=== PATIENT | female | born 1945 | race African-American/Black ===

== ENCOUNTER 2018-08-03 11:00 | Emergency (ER) | payer OTHER, MEDICAID ==
[2018-08-03 11:27] LABS: ADD MAN DIFF? NO
[2018-08-03 11:30] LABS: BASOPHILS % 0.6 % (0.0-2.0); EOSINOPHILS % 1.2 % (0.0-7.0); HEMATOCRIT 37.3 % (37.0-47.0); HEMOGLOBIN 11.7 g/dl (12.0-16.0); LYMPHOCYTES % 28.5 % (15.0-51.0); MEAN CORPUSCULAR HEMOGLOBIN 29.3 pg (29.0-33.0); MEAN CORPUSCULAR HGB CONC 31.4 g/dl (32.0-37.0); MEAN CORPUSCULAR VOLUME 93.5 fl (82.0-101.0); MEAN PLATELET VOLUME 10.4 fl (7.4-10.4); MONOCYTE # 0.3 10^3/ul (0.3-0.9); MONOCYTES % 9.9 % (0.0-11.0); NEUTROPHIL # 2.1 10^3/ul (1.6-7.5); NEUTROPHILS % 59.5 % (39.0-77.0); PLATELET COUNT 228 10^3/UL (140-415); RED BLOOD COUNT 3.99 10^6/ul (4.20-5.40); RED CELL DISTRIBUTION WIDTH 13.4 % (11.5-14.5)
[2018-08-03 11:30] LABS: WHITE BLOOD COUNT 3.4 10^3/ul (4.8-10.8)
[2018-08-03 11:44] LABS: ANION GAP 10 (8-16); BLOOD UREA NITROGEN 19 mg/dl (7-20); CALCIUM 9.6 mg/dl (8.4-10.2); CARBON DIOXIDE 29 mmol/L (21-31); CHLORIDE 106 mmol/L (97-110); CREATININE 1.33 mg/dl (0.44-1.00); GLUCOSE 141 mg/dl (70-220); MAGNESIUM 1.4 mg/dl (1.7-2.5); POTASSIUM 4.6 mmol/L (3.5-5.1); SODIUM 140 mmol/L (135-144)
[2018-08-03 11:55] LABS: TROPONIN-I < 0.012 ng/ml (0.000-0.120)
[2018-08-03] MEDS: MAGNESIUM SULFATE 1 GM/D5W 100 ML IVPB (12:13)
== END 2018-08-03 14:25 | disposition home or self-care (01) ==
LOC: E/R 11:00
DX: R25.3 Fasciculation (principal); Q79.0 Congenital diaphragmatic hernia; E83.42 Hypomagnesemia; J44.9 Chronic obstructive pulmonary disease, unspecified; I10 Essential (primary) hypertension; E11.9 Type 2 diabetes mellitus without complications; I25.810 Atherosclerosis of coronary artery bypass graft(s) without angina pectoris; Z87.891 Personal history of nicotine dependence; Z95.0 Presence of cardiac pacemaker
CPT/HCPCS: 36415; 71045; 71250; 80048; 83735; 84484; 85025; 93005; 96374; 99285-25

== ENCOUNTER 2018-08-08 13:14 | Emergency (ER) | payer OTHER, MEDICAID | END 2018-08-08 16:25 | disposition home or self-care (01) | LOC: E/R 13:14 | DX: R25.3 Fasciculation (principal); J44.9 Chronic obstructive pulmonary disease, unspecified; E11.9 Type 2 diabetes mellitus without complications; I10 Essential (primary) hypertension; I25.10 Atherosclerotic heart disease of native coronary artery without angina pectoris; Z87.891 Personal history of nicotine dependence; Z95.0 Presence of cardiac pacemaker; Z95.1 Presence of aortocoronary bypass graft | CPT/HCPCS: 82962; 99282 ==

== ENCOUNTER 2018-08-13 16:29 | Emergency (ER) | payer SELFPAY, MEDICAID, OTHER | END 2018-08-13 20:50 | disposition left against medical advice (07) | LOC: E/R 16:29 | DX: Z53.21 Procedure and treatment not carried out due to patient leaving prior to being seen by health care provider (principal) ==

== ENCOUNTER 2018-08-15 12:08 | Inpatient (IN) | payer OTHER, MEDICAID ==
[2018-08-15 13:03] LABS: ADD MAN DIFF? NO
[2018-08-15 13:08] LABS: WHITE BLOOD COUNT 3.7 10^3/ul (4.8-10.8)
[2018-08-15 13:08] LABS: BASOPHILS % 0.5 % (0.0-2.0); EOSINOPHILS % 1.1 % (0.0-7.0); HEMATOCRIT 38.9 % (37.0-47.0); LYMPHOCYTES # 0.9 10^3/ul (0.8-2.9); LYMPHOCYTES % 23.7 % (15.0-51.0); MEAN CORPUSCULAR HEMOGLOBIN 29.1 pg (29.0-33.0); MEAN CORPUSCULAR HGB CONC 30.8 g/dl (32.0-37.0); MEAN CORPUSCULAR VOLUME 94.2 fl (82.0-101.0); MEAN PLATELET VOLUME 10.2 fl (7.4-10.4); MONOCYTE # 0.3 10^3/ul (0.3-0.9); MONOCYTES % 7.8 % (0.0-11.0); NEUTROPHIL # 2.5 10^3/ul (1.6-7.5); NEUTROPHILS % 66.6 % (39.0-77.0); PLATELET COUNT 204 10^3/UL (140-415); RED BLOOD COUNT 4.13 10^6/ul (4.20-5.40); RED CELL DISTRIBUTION WIDTH 13.2 % (11.5-14.5)
[2018-08-15 13:25] LABS: ANION GAP 11 (8-16); BLOOD UREA NITROGEN 22 mg/dl (7-20); CALCIUM 9.6 mg/dl (8.4-10.2); CARBON DIOXIDE 26 mmol/L (21-31); CHLORIDE 109 mmol/L (97-110); CREATININE 1.33 mg/dl (0.44-1.00); GLUCOSE 127 mg/dl (70-220); POTASSIUM 4.3 mmol/L (3.5-5.1); SODIUM 142 mmol/L (135-144)
[2018-08-15 13:27] LABS: INR 0.94; PROTIME 12.7 Sec (11.9-14.9)
[2018-08-15 13:37] LABS: B-TYPE NATRIURETIC PEPTIDE 3770 PG/ML (0-125); TROPONIN-I < 0.012 ng/ml (0.000-0.120)
[2018-08-15] MEDS ORDERED: ACETAMINOPHEN 325 MG TAB PO (14:30)
[2018-08-15] MEDS ORDERED: NITROGLYCERIN (SL) 0.4 MG TAB SL (15:00)
[2018-08-15] MEDS: FUROSEMIDE 40 MG INJ IV (15:01)
[2018-08-15] MEDS: NITROGLYCERIN 2% 1 GM OINT PKT TD (15:01)
[2018-08-15] MEDS ORDERED: NACL 0.9% 3 ML SYG IV (15:30)
[2018-08-15] MEDS: ALBUTEROL/IPRATROPIUM (NEB) 3 ML AMP HHN ×2 (15:30→20:42)
[2018-08-15] MEDS ORDERED: HYDROCODONE/APAP (5/325) TAB PO (15:30)
[2018-08-15] MEDS: FUROSEMIDE 20 MG INJ IV (17:59)
[2018-08-15] MEDS: ATORVASTATIN 80 MG TAB PO (20:44)
[2018-08-15] MEDS: NIFEdipine (XL) 60 MG TAB PO (20:44)
[2018-08-16] MEDS: hydrALAzine 20 MG INJ IV (00:01)
[2018-08-16] MEDS: ONDANSETRON 4 MG INJ IV (01:22)
[2018-08-16] MEDS: ALBUTEROL/IPRATROPIUM (NEB) 3 ML AMP HHN ×3 (01:39→13:35)
[2018-08-16] MEDS: FUROSEMIDE 20 MG INJ IV ×2 (05:42→18:24)
[2018-08-16 05:43] LABS: ADD MAN DIFF? NO
[2018-08-16 05:50] LABS: BASOPHILS % 0.2 % (0.0-2.0); EOSINOPHILS % 0.5 % (0.0-7.0); HEMATOCRIT 33.9 % (37.0-47.0); HEMOGLOBIN 10.8 g/dl (12.0-16.0); LYMPHOCYTES # 0.7 10^3/ul (0.8-2.9); MEAN CORPUSCULAR HEMOGLOBIN 29.5 pg (29.0-33.0); MEAN CORPUSCULAR HGB CONC 31.9 g/dl (32.0-37.0); MEAN CORPUSCULAR VOLUME 92.6 fl (82.0-101.0); MEAN PLATELET VOLUME 10.4 fl (7.4-10.4); MONOCYTE # 0.4 10^3/ul (0.3-0.9); NEUTROPHIL # 3.2 10^3/ul (1.6-7.5); NEUTROPHILS % 74.1 % (39.0-77.0); PLATELET COUNT 209 10^3/UL (140-415); RED BLOOD COUNT 3.66 10^6/ul (4.20-5.40); RED CELL DISTRIBUTION WIDTH 13.2 % (11.5-14.5)
[2018-08-16 05:50] LABS: WHITE BLOOD COUNT 4.4 10^3/ul (4.8-10.8)
[2018-08-16 05:57] LABS: HEMOGLOBIN A1C 6.8 % (0-5.9)
[2018-08-16 07:02] LABS: ALANINE AMINOTRANSFERASE 19 IU/L (13-69); ALBUMIN 3.2 g/dl (3.3-4.9); ALBUMIN/GLOBULIN RATIO 1.14; ALKALINE PHOSPHATASE 44 IU/L (42-121); ANION GAP 10 (8-16); ASPARTATE AMINO TRANSFERASE 24 IU/L (15-46); BILIRUBIN,INDIRECT 0.6 mg/dl (0-1.1); BILIRUBIN,TOTAL 0.6 mg/dl (0.2-1.3); BLOOD UREA NITROGEN 23 mg/dl (7-20); CALCIUM 9.3 mg/dl (8.4-10.2); CARBON DIOXIDE 28 mmol/L (21-31); CHLORIDE 108 mmol/L (97-110); CREATININE 1.29 mg/dl (0.44-1.00); GLUCOSE 143 mg/dl (70-220); POTASSIUM 3.7 mmol/L (3.5-5.1); SODIUM 142 mmol/L (135-144)
[2018-08-16] MEDS: CLOPIDOGREL 75 MG TAB PO (08:02)
[2018-08-16] MEDS: NIFEdipine (XL) 60 MG TAB PO (08:04)
[2018-08-16] MEDS: ENOXAPARIN 30 MG/0.3 ML SYG SC (08:09)
== END 2018-08-16 19:50 | disposition home or self-care (01) | DRG 93 ==
LOC: E/R 12:08 → 6WM 14:24
DX: R25.3 Fasciculation (principal); R06.02 Shortness of breath; I25.10 Atherosclerotic heart disease of native coronary artery without angina pectoris; E11.9 Type 2 diabetes mellitus without complications; J44.9 Chronic obstructive pulmonary disease, unspecified; E78.00 Pure hypercholesterolemia, unspecified; K44.9 Diaphragmatic hernia without obstruction or gangrene; I11.0 Hypertensive heart disease with heart failure; I50.9 Heart failure, unspecified; Z87.891 Personal history of nicotine dependence; Z95.1 Presence of aortocoronary bypass graft; Z79.84 Long term (current) use of oral hypoglycemic drugs; Z95.0 Presence of cardiac pacemaker; Z82.49 Family history of ischemic heart disease and other diseases of the circulatory system
CPT/HCPCS: 71045; 80048; 80053; 83036; 83880; 84484; 85025; 85610; 93005; 93306; 93971; 94640; 94664; 99285-25

== ENCOUNTER 2018-08-24 23:01 | Observation (INO) | payer OTHER, MEDICAID ==
[2018-08-25 00:45] LABS: ADD MAN DIFF? NO
[2018-08-25 00:50] LABS: BASOPHILS % 0.4 % (0.0-2.0); EOSINOPHILS % 0.8 % (0.0-7.0); HEMATOCRIT 42.8 % (37.0-47.0); HEMOGLOBIN 13.1 g/dl (12.0-16.0); LYMPHOCYTES # 1.2 10^3/ul (0.8-2.9); LYMPHOCYTES % 22.7 % (15.0-51.0); MEAN CORPUSCULAR HEMOGLOBIN 28.3 pg (29.0-33.0); MEAN CORPUSCULAR HGB CONC 30.6 g/dl (32.0-37.0); MEAN CORPUSCULAR VOLUME 92.4 fl (82.0-101.0); MEAN PLATELET VOLUME 9.5 fl (7.4-10.4); MONOCYTE # 0.3 10^3/ul (0.3-0.9); MONOCYTES % 6.1 % (0.0-11.0); NEUTROPHIL # 3.7 10^3/ul (1.6-7.5); NEUTROPHILS % 69.8 % (39.0-77.0); PLATELET COUNT 261 10^3/UL (140-415); RED BLOOD COUNT 4.63 10^6/ul (4.20-5.40)
[2018-08-25 00:50] LABS: WHITE BLOOD COUNT 5.2 10^3/ul (4.8-10.8)
[2018-08-25 01:11] LABS: CREATINE KINASE 51 IU/L (23-200)
[2018-08-25 01:21] LABS: CK INDEX 4.5; CK-MB 2.29 ng/ml (0.0-2.4); TROPONIN-I < 0.012 ng/ml (0.000-0.120)
[2018-08-25 01:50] LABS: ANION GAP 16 (8-16); BLOOD UREA NITROGEN 21 mg/dl (7-20); CALCIUM 10.4 mg/dl (8.4-10.2); CARBON DIOXIDE 24 mmol/L (21-31); CHLORIDE 107 mmol/L (97-110); CREATININE 1.19 mg/dl (0.44-1.00); GLUCOSE 120 mg/dl (70-220); POTASSIUM 3.7 mmol/L (3.5-5.1); SODIUM 143 mmol/L (135-144)
[2018-08-25 02:01] LABS: TROPONIN-I < 0.012 ng/ml (0.000-0.120)
[2018-08-25] MEDS: NITROGLYCERIN 2% 1 GM OINT PKT TD (03:15)
[2018-08-25] MEDS: ASPIRIN 81 MG TAB PO (03:15)
[2018-08-25] MEDS ORDERED: ACETAMINOPHEN 325 MG TAB PO (06:00)
[2018-08-25] MEDS ORDERED: ONDANSETRON 4 MG INJ IV (06:00)
[2018-08-25] MEDS ORDERED: NACL 0.9% 3 ML SYG IV (06:00)
[2018-08-25] MEDS ORDERED: NITROGLYCERIN (SL) 0.4 MG TAB SL (06:00)
[2018-08-25] MEDS ORDERED: ALBUTEROL/IPRATROPIUM (NEB) 3 ML AMP HHN (06:00)
[2018-08-25 07:30] LABS: CREATINE KINASE 40 IU/L (23-200)
[2018-08-25 07:33] LABS: CK INDEX 5.5; CK-MB 2.21 ng/ml (0.0-2.4); TROPONIN-I < 0.012 ng/ml (0.000-0.120)
[2018-08-25] MEDS: metFORMIN (XR) 500 MG TAB PO (08:30)
[2018-08-25] MEDS: NIFEdipine (XL) 60 MG TAB PO (08:30)
[2018-08-25] MEDS: CLOPIDOGREL 75 MG TAB PO (08:30)
[2018-08-25] MEDS ORDERED: NIFEdipine (XL) 60 MG TAB PO (09:00)
[2018-08-25] MEDS: METHYLPREDNISOLONE 125 MG INJ IV (11:55)
[2018-08-25] MEDS ORDERED: ATORVASTATIN 80 MG TAB PO (21:00)
== END 2018-08-25 18:20 | disposition home or self-care (01) ==
LOC: E/R 23:01 → 6WM 08-25 03:47
DX: R07.9 Chest pain, unspecified (principal); E11.9 Type 2 diabetes mellitus without complications; I25.10 Atherosclerotic heart disease of native coronary artery without angina pectoris; I11.0 Hypertensive heart disease with heart failure; I50.9 Heart failure, unspecified; Z95.0 Presence of cardiac pacemaker; Z95.1 Presence of aortocoronary bypass graft
CPT/HCPCS: 36415; 71045; 80048; 82550; 82553; 84484; 85025; 93005; 99217; 99285-25

== ENCOUNTER 2018-08-28 08:26 | Emergency (ER) | payer OTHER, MEDICAID ==
[2018-08-28 09:04] LABS: ADD MAN DIFF? NO
[2018-08-28 09:07] LABS: BASOPHILS % 0.5 % (0.0-2.0); EOSINOPHILS # 0.1 10^3/ul (0.0-0.5); EOSINOPHILS % 1.4 % (0.0-7.0); HEMATOCRIT 38.8 % (37.0-47.0); HEMOGLOBIN 12.4 g/dl (12.0-16.0); LYMPHOCYTES # 1.3 10^3/ul (0.8-2.9); LYMPHOCYTES % 22.3 % (15.0-51.0); MEAN CORPUSCULAR HEMOGLOBIN 28.9 pg (29.0-33.0); MEAN CORPUSCULAR VOLUME 90.4 fl (82.0-101.0); MEAN PLATELET VOLUME 9.6 fl (7.4-10.4); MONOCYTE # 0.4 10^3/ul (0.3-0.9); MONOCYTES % 6.2 % (0.0-11.0); NEUTROPHILS % 69.3 % (39.0-77.0); PLATELET COUNT 275 10^3/UL (140-415); RED BLOOD COUNT 4.29 10^6/ul (4.20-5.40); RED CELL DISTRIBUTION WIDTH 12.9 % (11.5-14.5)
[2018-08-28 09:07] LABS: WHITE BLOOD COUNT 5.8 10^3/ul (4.8-10.8)
[2018-08-28 09:42] LABS: ANION GAP 17 (8-16); BLOOD UREA NITROGEN 24 mg/dl (7-20); CALCIUM 9.8 mg/dl (8.4-10.2); CARBON DIOXIDE 21 mmol/L (21-31); CHLORIDE 109 mmol/L (97-110); CREATININE 1.29 mg/dl (0.44-1.00); GLUCOSE 116 mg/dl (70-220); POTASSIUM 3.5 mmol/L (3.5-5.1); SODIUM 143 mmol/L (135-144)
[2018-08-28 09:56] LABS: TROPONIN-I 0.021 ng/ml (0.000-0.120)
== END 2018-08-28 10:35 | disposition home or self-care (01) ==
LOC: E/R 08:26
DX: R00.2 Palpitations (principal); E11.9 Type 2 diabetes mellitus without complications; I25.10 Atherosclerotic heart disease of native coronary artery without angina pectoris; I11.0 Hypertensive heart disease with heart failure; I50.9 Heart failure, unspecified; Z79.01 Long term (current) use of anticoagulants; Z79.84 Long term (current) use of oral hypoglycemic drugs; Z95.0 Presence of cardiac pacemaker; Z95.1 Presence of aortocoronary bypass graft
CPT/HCPCS: 36415; 71045; 80048; 84484; 85025; 93005; 99285-25

== ENCOUNTER 2018-08-30 08:34 | Emergency (ER) | payer OTHER, MEDICAID ==
[2018-08-30 09:09] LABS: ADD MAN DIFF? NO
[2018-08-30 09:11] LABS: BASOPHILS % 0.4 % (0.0-2.0); EOSINOPHILS # 0.1 10^3/ul (0.0-0.5); EOSINOPHILS % 1.3 % (0.0-7.0); HEMATOCRIT 41.9 % (37.0-47.0); HEMOGLOBIN 13.3 g/dl (12.0-16.0); LYMPHOCYTES # 1.1 10^3/ul (0.8-2.9); LYMPHOCYTES % 15.8 % (15.0-51.0); MEAN CORPUSCULAR HEMOGLOBIN 28.9 pg (29.0-33.0); MEAN CORPUSCULAR HGB CONC 31.7 g/dl (32.0-37.0); MEAN CORPUSCULAR VOLUME 91.1 fl (82.0-101.0); MEAN PLATELET VOLUME 9.4 fl (7.4-10.4); MONOCYTE # 0.3 10^3/ul (0.3-0.9); MONOCYTES % 4.1 % (0.0-11.0); NEUTROPHIL # 5.3 10^3/ul (1.6-7.5); NEUTROPHILS % 78.1 % (39.0-77.0); PLATELET COUNT 279 10^3/UL (140-415); RED CELL DISTRIBUTION WIDTH 12.7 % (11.5-14.5)
[2018-08-30 09:11] LABS: WHITE BLOOD COUNT 6.8 10^3/ul (4.8-10.8)
[2018-08-30] MEDS: SOD CHLORIDE 0.9% 500 ML IV (09:11)
[2018-08-30] MEDS: LORAZEPAM 0.5 MG TAB PO (09:11)
[2018-08-30 09:41] LABS: ALANINE AMINOTRANSFERASE 12 IU/L (13-69); ALBUMIN 4.9 g/dl (3.3-4.9); ALBUMIN/GLOBULIN RATIO 1.22; ALKALINE PHOSPHATASE 78 IU/L (42-121); ANION GAP 16 (8-16); ASPARTATE AMINO TRANSFERASE 32 IU/L (15-46); BILIRUBIN,INDIRECT 0.6 mg/dl (0-1.1); BILIRUBIN,TOTAL 0.6 mg/dl (0.2-1.3); BLOOD UREA NITROGEN 18 mg/dl (7-20); CARBON DIOXIDE 22 mmol/L (21-31); CHLORIDE 108 mmol/L (97-110); CREATININE 1.15 mg/dl (0.44-1.00); GLUCOSE 159 mg/dl (70-220); LIPASE 234 U/L (23-300); POTASSIUM 3.2 mmol/L (3.5-5.1); SODIUM 143 mmol/L (135-144); TOTAL PROTEIN 8.9 g/dl (6.1-8.1)
[2018-08-30 09:53] LABS: TROPONIN-I 0.019 ng/ml (0.000-0.120)
[2018-08-30] MEDS: POTASSIUM CHLORIDE (SR) 20 MEQ TAB PO (10:59)
[2018-08-30 11:05] LABS: URINE PH (Dip) POC 5.5 (5.0-8.5)
[2018-08-30 11:05] LABS: URINE BLOOD (Dip) POC Negative (NEGATIVE); URINE GLUCOSE (Dip) POC Negative (NEGATIVE); URINE KETONES (Dip) POC Negative (NEGATIVE); URINE LEUKOCYTE EST (Dip) POC Trace (NEGATIVE); URINE NITRITE (Dip) POC Negative (NEGATIVE); URINE TOTAL PROTEIN POC 2+ (NEGATIVE)
[2018-08-30 13:33] LABS: ADD UMIC YES; UR ASCORBIC ACID NEGATIVE (NEGATIVE); UR BILIRUBIN (Dip) NEGATIVE (NEGATIVE); UR BLOOD (Dip) NEGATIVE (NEGATIVE); UR CLARITY CLEAR (CLEAR); UR COLOR YELLOW (YELLOW); UR GLUCOSE (Dip) NEGATIVE (NEGATIVE); UR KETONES (Dip) NEGATIVE (NEGATIVE); UR LEUKOCYTE ESTERASE (Dip) TRACE Leu/ul (NEGATIVE); UR NITRITE (Dip) NEGATIVE (NEGATIVE); UR RBC 1 /HPF (0-5); UR SPECIFIC GRAVITY (Dip) 1.013 (1.003-1.030); UR SQUAMOUS EPITHELIAL CELL FEW /HPF (FEW); UR TOTAL PROTEIN (Dip) 2+ mg/dl (NEGATIVE); UR UROBILINOGEN (Dip) NEGATIVE (NEGATIVE); UR WBC 2 /HPF (0-5)
== END 2018-08-30 12:06 | disposition home or self-care (01) ==
LOC: E/R 08:34
DX: E87.6 Hypokalemia (principal); I11.0 Hypertensive heart disease with heart failure; I50.9 Heart failure, unspecified; I12.9 Hypertensive chronic kidney disease with stage 1 through stage 4 chronic kidney disease, or unspecified chronic kidney disease; N18.9 Chronic kidney disease, unspecified; E11.22 Type 2 diabetes mellitus with diabetic chronic kidney disease; I25.10 Atherosclerotic heart disease of native coronary artery without angina pectoris; F17.210 Nicotine dependence, cigarettes, uncomplicated; Z95.1 Presence of aortocoronary bypass graft; Z95.0 Presence of cardiac pacemaker; Z79.84 Long term (current) use of oral hypoglycemic drugs; Z79.01 Long term (current) use of anticoagulants
CPT/HCPCS: 36415; 71045; 80053; 81001; 81003; 83690; 84484; 85025; 87086; 93005; 96360; 99285-25